=== PATIENT | female | born 1930 | race Caucasian/White ===

== ENCOUNTER 2017-04-08 10:35 | Observation (INO) | payer OTHER, BC ==
[~2017-04-08] VITALS: Ht 160 cm; Wt 87.1 kg
[~2017-04-08 10:35] MED LIST: APRESOLINE50 MG PO; ASCORBIC ACID500 M3 PO; ASPIR 8181 M1 PO; Apresoline PO; Augmentin PO; BENICAR20 MG PO; BENICAR40 MG PO; BUMETANIDE2 MG PO; Benicar PO; CARVEDILOL25 MG PO; COLCHICINE0.6 M1 PO; COMBIVENT RESPIM4 GM IH; COMPAZINE10 MG PO; COREG6.25 M1 PO; CRESTOR20 MG PO; Coreg PO; Cozaar PO; DILAUDID2 MG PO; DIPHENOXYLATE-1 EAC1 PO; DUONEB 2.5-0.5 M3 ML IH; Dilaudid PO; DuoNeb IH; FERROUS SULFAT325 MG PO; FLOMAX0.4 MG PO; FOLIC ACID1 MG PO; Feosol PO; Flagyl PO; HYDROCODON-ACE1 EAC7 PO; INDOCIN50 MG PO; IRON160 M1 PO; LASIX10 MG PO; LEVOTHROID88 MCG PO; LEVOTHYROXINE88 MCG PO; LEXAPRO10 MG PO; LOPRESSOR50 MG G-TUBE; LORTAB 5-325 M1 EACH PO; LOSARTAN POTAS100 MG PO; Levaquin PO; Levothroid,Synthroid PO; Lexapro PO; METOPROLOL TART50 MG PO; MIRAPEX PO; MIRAPEX1 MG PO; NAPROXEN SODIU275 MG PO; NEXIUM40 MG PO; NUVIGIL150 MG PO; OMEPRAZOLE40 M1 PO; PREDNISONE10 M1 PO; PREDNISONE20 MG PO; PRILOSEC40 MG PO; RANITIDINE HCL; RANITIDINE HCL150 MG PO; RED YEAST RICE600 M1 PO; SERTRALINE HCL100 MG PO; SYMBICORT60 INHALAT IH; SYNTHROID88 MCG PO; Symbicort 160-4.5 mc IH; TOPROL XL50 MG PO; TORSEMIDE20 MG PO; TYLENOL REGULA325 MG PO; Toprol XL PO; VITAMIN C500 M1 PO; VITAMIN D31000 UNI2 PO; VYTORIN; VYTORIN 10-401 EACH PO; VYTORIN 10/41 TABLET PO; Vicodin,Norco 5/325 PO; Vytorin 10/40 PO; XIFAXAN550 MG PO; ZESTRIL,PRINIVIL5 MG PO; Zantac,Taladine PO; Zoloft PO; predniSONE PO
[2017-04-08 12:03] LABS: HEMATOCRIT 38.4 % (36.0-46.0); MCH 33.2 PG (29.0-34.0); MCHC 33.3 G/DL (30.0-36.0); MCV 99.7 FL (83-99); MEAN PLAT.VOLUME 9.9 uM^3 (9.5-12.4); PLATELET COUNT 149 K/uL (156-360); RBC DIS.WIDTH-CV 14.7 % (11.8-14.6); RBC DIS.WIDTH-SD 53.9 % (39-53); RED BLOOD COUNT 3.85 M/uL (3.80-5.20)
[2017-04-08 12:08] LABS: WHITE BLOOD COUNT 7.9 K/uL (4.1-10.2)
[2017-04-08 12:29] LABS: TROP-I INTERPRETATION NEGATIVE; TROPONIN-I < 0.01 ng/mL (0.0-0.30)
[2017-04-08 12:37] LABS: CHLORIDE 104 mEq/L (99-109); POTASSIUM 3.5 mEq/L (3.7-5.4)
[2017-04-08 12:38] LABS: SODIUM 142 mEq/L (136-147)
[2017-04-08 12:40] LABS: GLUCOSE 91 mg/dL (70-99)
[2017-04-08 12:41] LABS: ANION GAP 14 MEQ/L (2-14); TOTAL BILIRUBIN 0.6 mg/dL (0.0-1.0)
[2017-04-08 12:43] LABS: ALKALINE PHOSPHATASE 63 IU/L (3-129); GFR ESTIMATE (CALCULATED) 50 mL/min/
[2017-04-08 12:44] LABS: UREA NITROGEN (BUN) 36 mg/dL (9-23)
[2017-04-08 12:45] LABS: DIRECT BILIRUBIN 0.2 mg/dL (0.0-0.3)
[2017-04-08] MEDS ORDERED: ALLOPURINOL300 MG PO (15:08)
[2017-04-08] MEDS ORDERED: FUROSEMIDE40 MG PO (15:09)
[2017-04-08] MEDS ORDERED: SERTRALINE HCL50 MG PO (15:09)
[2017-04-08] MEDS ORDERED: POTASSIUM CHLO10 ME4 PO (15:09)
[2017-04-08] MEDS ORDERED: PREDNISONE5 MG PO (15:10)
[2017-04-08 17:16] VITALS: BP 137/62
[2017-04-08 20:08] VITALS: BP 123/83
[2017-04-08 21:38] LABS: TROP-I INTERPRETATION NEGATIVE; TROPONIN-I < 0.01 ng/mL (0.0-0.30)
[2017-04-08 23:53] VITALS: BP 117/61
[2017-04-09 04:03] VITALS: BP 114/55
[2017-04-09 05:21] LABS: CHLORIDE 104 mEq/L (99-109); POTASSIUM 4.3 mEq/L (3.7-5.4); SODIUM 142 mEq/L (136-147)
[2017-04-09 05:22] LABS: TROP-I INTERPRETATION NEGATIVE; TROPONIN-I < 0.01 ng/mL (0.0-0.30)
[2017-04-09 05:23] LABS: GLUCOSE 90 mg/dL (70-99)
[2017-04-09 05:24] LABS: ANION GAP 9 MEQ/L (2-14)
[2017-04-09 05:27] LABS: ALKALINE PHOSPHATASE 52 IU/L (3-129); GFR ESTIMATE (CALCULATED) 50 mL/min/; TOTAL BILIRUBIN 0.4 mg/dL (0.0-1.0)
[2017-04-09 05:28] LABS: UREA NITROGEN (BUN) 29 mg/dL (9-23)
[2017-04-09 06:52] VITALS: BP 129/60
[2017-04-09 12:37] VITALS: BP 138/68
== END 2017-04-09 14:59 | disposition home or self-care (01) ==
LOC: EME 10:35 → EDOF 14:50 → 5WEST 17:13
PROVIDERS: Internal Medicine
DX: R07.89 Other chest pain (principal); M54.9 Dorsalgia, unspecified; R42 Dizziness and giddiness; I10 Essential (primary) hypertension; J44.9 Chronic obstructive pulmonary disease, unspecified; E78.5 Hyperlipidemia, unspecified; K21.9 Gastro-esophageal reflux disease without esophagitis; Z87.891 Personal history of nicotine dependence; E66.9 Obesity, unspecified; Z68.34 Body mass index [BMI] 34.0-34.9, adult; G47.33 Obstructive sleep apnea (adult) (pediatric); E53.8 Deficiency of other specified B group vitamins; F41.9 Anxiety disorder, unspecified; E03.9 Hypothyroidism, unspecified; M10.9 Gout, unspecified; K86.2 Cyst of pancreas; R09.02 Hypoxemia
CPT/HCPCS: 71020; 71275; 80048; 80053; 80076; 83880; 84484; 85027; 93005; 94640; 94640 76; 94799; 99202; 99281; 99284; G0378; J1650; J2270; J7120; J7512

== ENCOUNTER 2017-06-13 08:55 | Emergency (ER) | payer OTHER, BC ==
[~2017-06-13] VITALS: Ht 160 cm; Wt 82.7 kg
[~2017-06-13 08:55] MED LIST changes: +ALLOPURINOL300 MG PO; +FUROSEMIDE40 MG PO; +POTASSIUM CHLO10 ME4 PO; +PREDNISONE5 MG PO; +SERTRALINE HCL50 MG PO
[2017-06-13 09:51] LABS: EOSINOPHIL (%) 1.1 % (0-5); EOSINOPHIL COUNT 0.1 K/uL (0-0.3); HEMATOCRIT 35.8 % (36.0-46.0); IMMATURE GRANULOCYTE (%) 0.7 % (0.0-0.7); IMMATURE GRANULOCYTE COUNT 0.1 K/uL; INSTRUMENT ABS NEUTROPHIL CT 6.7 K/uL; LYMPHOCYTE COUNT 1.6 K/uL (1.0-2.8); MCH 33.2 PG (29.0-34.0); MCV 100.8 FL (83-99); MEAN PLAT.VOLUME 9.4 uM^3 (9.5-12.4); MONOCYTE (%) 7.4 % (3-12); MONOCYTE COUNT 0.7 K/uL (0-0.8); NEUTROPHIL (%) 73.3 % (45-76); NEUTROPHIL COUNT 6.7 K/uL (1.8-6.4); PLATELET COUNT 168 K/uL (156-360); RBC DIS.WIDTH-CV 14.6 % (11.8-14.6); RBC DIS.WIDTH-SD 54.4 % (39-53); RED BLOOD COUNT 3.55 M/uL (3.80-5.20); WHITE BLOOD COUNT 9.2 K/uL (4.1-10.2)
[2017-06-13 10:00] LABS: PROTHROMBIN TIME 10.4 SEC (10.2-12.9)
[2017-06-13 10:03] LABS: PTT 27.3 SEC (25-37)
[2017-06-13 10:27] LABS: ANION GAP 12 MEQ/L (2-14); CHLORIDE 102 MEQ/L (99-109); POTASSIUM 4.1 MEQ/L (3.7-5.4); SAMPLE HEMOLYSIS CHECK 1; SAMPLE ICTERIC CHECK 0; SAMPLE LIPEMIA CHECK 1; SODIUM 142 MEQ/L (136-147); TOTAL BILIRUBIN 0.5 MG/DL (0.0-1.0)
[2017-06-13 10:33] LABS: ALKALINE PHOSPHATASE 63 IU/L (3-129); GFR ESTIMATE (CALCULATED) 41 mL/min/; GLUCOSE 93 mg/dL (70-99); LIPASE 30 U/L (1.0-51.0); UREA NITROGEN (BUN) 50 mg/dL (9-23)
[2017-06-13 11:22] LABS: TROP-I INTERPRETATION NEGATIVE; TROPONIN-I 0.01 ng/mL (0.0-0.30)
[2017-06-13] MEDS ORDERED: ULTRAM50 MG PO (12:52)
[2017-06-13 13:10] VITALS: BP 109/65
== END 2017-06-13 13:21 | disposition home or self-care (01) ==
LOC: EME 08:55
PROVIDERS: Emergency Medicine
DX: K86.2 Cyst of pancreas (principal); R10.13 Epigastric pain; M54.9 Dorsalgia, unspecified; K21.9 Gastro-esophageal reflux disease without esophagitis; I10 Essential (primary) hypertension; Z87.442 Personal history of urinary calculi; Z87.891 Personal history of nicotine dependence
CPT/HCPCS: 71010; 74177; 80053; 83690; 84484; 85025; 85610; 85730; 93005; 99281; 99285; J7030

== ENCOUNTER 2017-07-21 14:41 | Inpatient (IN) | payer OTHER, BC ==
[~2017-07-21] VITALS: Ht 160 cm; Wt 82.6 kg
[~2017-07-21 14:41] MED LIST changes: +MICRO-K10 ME2 PO; -POTASSIUM CHLO10 ME4 PO; +PREDNISONE10 MG PO; -PREDNISONE5 MG PO; +ULTRAM50 MG PO
[2017-07-21 17:18] LABS: HEMATOCRIT 36.9 % (36.0-46.0); MCH 33.5 PG (29.0-34.0); MCHC 33.1 G/DL (30.0-36.0); MCV 101.4 FL (83-99); MEAN PLAT.VOLUME 9.9 uM^3 (9.5-12.4); PLATELET COUNT 155 K/uL (156-360); RBC DIS.WIDTH-CV 14.6 % (11.8-14.6); RBC DIS.WIDTH-SD 54.6 % (39-53); RED BLOOD COUNT 3.64 M/uL (3.80-5.20); WHITE BLOOD COUNT 18.3 K/uL (4.1-10.2)
[2017-07-21 17:25] LABS: PROTHROMBIN TIME 10.6 SEC (10.2-12.9)
[2017-07-21 17:28] LABS: PTT 26.2 SEC (25-37)
[2017-07-21 17:29] LABS: CHLORIDE 107 mEq/L (99-109); POTASSIUM 4.1 mEq/L (3.7-5.4); SODIUM 143 mEq/L (136-147)
[2017-07-21 17:31] LABS: GLUCOSE 122 mg/dL (70-99)
[2017-07-21 17:32] LABS: ANION GAP 12 MEQ/L (2-14)
[2017-07-21 17:33] LABS: TOTAL BILIRUBIN 0.4 mg/dL (0.0-1.0)
[2017-07-21 17:35] LABS: ALKALINE PHOSPHATASE 66 IU/L (3-129); GFR ESTIMATE (CALCULATED) 38 mL/min/
[2017-07-21 17:36] LABS: UREA NITROGEN (BUN) 32 mg/dL (9-23)
[2017-07-21] MEDS ORDERED: PREDNISONE10 MG PO (18:37)
[2017-07-21] MEDS ORDERED: METOLAZONE2.5 MG PO (18:38)
[2017-07-21] MEDS ORDERED: CYANOCOBALAM1000 MCG PO (18:38)
[2017-07-21] MEDS ORDERED: NAPROXEN SODIU275 MG PO (18:38)
[2017-07-21 20:30] VITALS: BP 121/59
[2017-07-22] VITALS (7 sets, daily range): BP systolic 105–135; BP diastolic 51–77
[2017-07-22 06:23] LABS: EOSINOPHIL (%) 0.8 % (0-5); EOSINOPHIL COUNT 0.1 K/uL (0-0.3); HEMATOCRIT 32.2 % (36.0-46.0); IMMATURE GRANULOCYTE (%) 0.6 % (0.0-0.7); IMMATURE GRANULOCYTE COUNT 0.1 K/uL; INSTRUMENT ABS NEUTROPHIL CT 8.7 K/uL; LYMPHOCYTE COUNT 1.2 K/uL (1.0-2.8); MCH 34.5 PG (29.0-34.0); MCHC 32.9 G/DL (30.0-36.0); MCV 104.9 FL (83-99); MEAN PLAT.VOLUME 9.7 uM^3 (9.5-12.4); MONOCYTE (%) 4.5 % (3-12); MONOCYTE COUNT 0.5 K/uL (0-0.8); NEUTROPHIL (%) 82.7 % (45-76); NEUTROPHIL COUNT 8.7 K/uL (1.8-6.4); PLATELET COUNT 129 K/uL (156-360); RBC DIS.WIDTH-SD 57.1 % (39-53); RED BLOOD COUNT 3.07 M/uL (3.80-5.20); WHITE BLOOD COUNT 10.5 K/uL (4.1-10.2)
[2017-07-22 06:55] LABS: ANION GAP 7 MEQ/L (2-14); CHLORIDE 109 MEQ/L (99-109); GFR ESTIMATE (CALCULATED) 41 mL/min/; GLUCOSE 92 mg/dL (70-99); POTASSIUM 4.2 MEQ/L (3.7-5.4); SAMPLE HEMOLYSIS CHECK 0; SAMPLE ICTERIC CHECK 0; SAMPLE LIPEMIA CHECK 0; SODIUM 143 MEQ/L (136-147); UREA NITROGEN (BUN) 27 mg/dL (9-23)
[2017-07-23] VITALS (7 sets, daily range): BP systolic 111–139; BP diastolic 56–78
[2017-07-24 04:00] VITALS: BP 125/78
[2017-07-24 07:20] VITALS: BP 162/74
[2017-07-24 11:44] VITALS: BP 171/74
[2017-07-24 16:20] VITALS: BP 122/58
[2017-07-24 19:28] VITALS: BP 145/65
[2017-07-24 23:24] VITALS: BP 140/63
[2017-07-25 07:50] VITALS: BP 162/70
[2017-07-25] MEDS ORDERED: AUGMENTIN500 MG PO (15:11)
[2017-07-25] MEDS ORDERED: OXYCODONE HCL5 MG PO (15:12)
== END 2017-07-25 15:52 | disposition home or self-care (01) | DRG 603 ==
LOC: EME 14:41 → EDOF 18:30 → ENRESERV 18:39 → 2EAST 20:10
PROVIDERS: Emergency Medicine; Internal Medicine
DX: L03.115 Cellulitis of right lower limb (principal); B95.8 Unspecified staphylococcus as the cause of diseases classified elsewhere; I11.0 Hypertensive heart disease with heart failure; I50.9 Heart failure, unspecified; G47.30 Sleep apnea, unspecified; G89.4 Chronic pain syndrome; J44.9 Chronic obstructive pulmonary disease, unspecified; I83.90 Asymptomatic varicose veins of unspecified lower extremity; I87.2 Venous insufficiency (chronic) (peripheral); E03.9 Hypothyroidism, unspecified; G25.81 Restless legs syndrome; G47.00 Insomnia, unspecified; I25.10 Atherosclerotic heart disease of native coronary artery without angina pectoris; K21.9 Gastro-esophageal reflux disease without esophagitis; M10.9 Gout, unspecified; F41.9 Anxiety disorder, unspecified; M19.90 Unspecified osteoarthritis, unspecified site; Z68.32 Body mass index [BMI] 32.0-32.9, adult; E66.9 Obesity, unspecified; Z82.49 Family history of ischemic heart disease and other diseases of the circulatory system; Z83.3 Family history of diabetes mellitus; Z87.442 Personal history of urinary calculi; Z87.891 Personal history of nicotine dependence
CPT/HCPCS: 80048; 80053; 83605; 85025; 85027; 85610; 85730; 86341 90; 87040; 87077; 87186; 87801; 93971; 94640; 94640 76; 94760; 94799; 99281; 99285; J0295; J0690; J0696; J1644; J7030; J7050; J7512; S0028; S0039

== ENCOUNTER 2017-09-18 07:31 | Inpatient (IN) | payer OTHER, BC ==
[~2017-09-18] VITALS: Ht 167.6 cm; Wt 81.4 kg
[~2017-09-18 07:31] MED LIST changes: +AUGMENTIN500 MG PO; +CYANOCOBALAM1000 MCG PO; +METOLAZONE2.5 MG PO; +OXYCODONE HCL5 MG PO
[2017-09-18 08:42] LABS: EOSINOPHIL (%) 0.2 % (0-5); HEMATOCRIT 33.6 % (36.0-46.0); IMMATURE GRANULOCYTE (%) 0.3 % (0.0-0.7); LYMPHOCYTE COUNT 1.1 K/uL (1.0-2.8); MCH 33.3 PG (29.0-34.0); MCHC 33.3 G/DL (30.0-36.0); MEAN PLAT.VOLUME 9.1 uM^3 (9.5-12.4); MONOCYTE (%) 7.4 % (3-12); MONOCYTE COUNT 0.9 K/uL (0-0.8); NEUTROPHIL (%) 82.7 % (45-76); PLATELET COUNT 187 K/uL (156-360); RBC DIS.WIDTH-CV 14.6 % (11.8-14.6); RBC DIS.WIDTH-SD 53.9 % (39-53); RED BLOOD COUNT 3.36 M/uL (3.80-5.20); WHITE BLOOD COUNT 12.2 K/uL (4.1-10.2)
[2017-09-18 09:06] LABS: TROP-I INTERPRETATION NEGATIVE; TROPONIN-I 0.01 ng/mL (0.0-0.30)
[2017-09-18 09:13] LABS: ANION GAP 11 MEQ/L (2-14); CHLORIDE 100 MEQ/L (99-109); CREATINE KINASE 93 IU/L (1-294); GFR ESTIMATE (CALCULATED) 32 mL/min/; GLUCOSE 128 mg/dL (70-99); POTASSIUM 3.9 MEQ/L (3.7-5.4); SAMPLE HEMOLYSIS CHECK 0; SAMPLE ICTERIC CHECK 0; SAMPLE LIPEMIA CHECK 0; SODIUM 138 MEQ/L (136-147); TOTAL CK 93 IU/L (1-294); UREA NITROGEN (BUN) 33 mg/dL (9-23)
[2017-09-18] MEDS ORDERED: SERTRALINE HCL50 MG PO (10:41)
[2017-09-18] MEDS ORDERED: VITAMIN B-1100 MG PO (10:42)
[2017-09-18 11:58] VITALS: BP 110/67
[2017-09-18 16:04] VITALS: BP 136/62
[2017-09-18 16:36] LABS: TROP-I INTERPRETATION NEGATIVE; TROPONIN-I < 0.01 ng/mL (0.0-0.30)
[2017-09-18 19:45] VITALS: BP 175/74
[2017-09-19 00:15] VITALS: BP 139/65
[2017-09-19 01:12] LABS: TROP-I INTERPRETATION NEGATIVE; TROPONIN-I < 0.01 ng/mL (0.0-0.30)
[2017-09-19 04:19] VITALS: BP 114/57
[2017-09-19 05:46] LABS: TROP-I INTERPRETATION NEGATIVE; TROPONIN-I < 0.01 ng/mL (0.0-0.30)
[2017-09-19 08:46] VITALS: BP 103/52
[2017-09-19 11:26] VITALS: BP 119/58
[2017-09-19 15:23] VITALS: BP 114/58
[2017-09-19 19:55] VITALS: BP 107/51
[2017-09-20] VITALS (7 sets, daily range): BP systolic 82–99; BP diastolic 47–58
[2017-09-21 04:00] VITALS: BP 98/64
[2017-09-21 09:11] VITALS: BP 115/54
[2017-09-21 10:34] LABS: BASE EXCESS -5.6 mEq/L (-3 to +3); BICARBONATE 21.5 mEq/L (22-26); CARBOXY HGB 2.2 % (0-5); METHEMOGLOBIN 1.6 % (0-1.5); PCO2 49 mm Hg (35-45); PO2 85 mm Hg (80-100)
[2017-09-21 10:35] LABS: DEVICE NC; O2 FLOW 2 L/MIN; SITE RR; TOTAL RESP RATE 15 resp/min
[2017-09-21 10:36] LABS: pH 7.25 (7.35-7.45)
[2017-09-21 10:58] LABS: HEMATOCRIT 28.5 % (36.0-46.0); MCH 33.8 PG (29.0-34.0); MCHC 33.7 G/DL (30.0-36.0); MCV 100.4 FL (83-99); MEAN PLAT.VOLUME 9.5 uM^3 (9.5-12.4); PLATELET COUNT 199 K/uL (156-360); RBC DIS.WIDTH-CV 14.8 % (11.8-14.6); RED BLOOD COUNT 2.84 M/uL (3.80-5.20); WHITE BLOOD COUNT 9.6 K/uL (4.1-10.2)
[2017-09-21 11:30] LABS: ANION GAP 15 MEQ/L (2-14); CHLORIDE 95 MEQ/L (99-109); GLUCOSE 75 mg/dL (70-99); SAMPLE HEMOLYSIS CHECK 0; SAMPLE ICTERIC CHECK 0; SAMPLE LIPEMIA CHECK 0
[2017-09-21 11:31] LABS: GFR ESTIMATE (CALCULATED) 11 mL/min/; POTASSIUM 5.4 MEQ/L (3.7-5.4); SODIUM 130 MEQ/L (136-147); UREA NITROGEN (BUN) 62 mg/dL (9-23)
[2017-09-21 12:36] VITALS: BP 83/39
[2017-09-21 14:15] LABS: BASE EXCESS -4.8 mEq/L (-3 to +3); BICARBONATE 20.5 mEq/L (22-26); CARBOXY HGB 2.2 % (0-5); METHEMOGLOBIN 1.6 % (0-1.5); PCO2 38 mm Hg (35-45); PO2 88 mm Hg (80-100); pH 7.34 (7.35-7.45)
[2017-09-21 14:16] LABS: COMMENTS - BLOOD GASES C+A+; DEVICE NC; O2 FLOW 2 L/MIN; SITE RR; TOTAL RESP RATE 20 resp/min
[2017-09-21 14:36] VITALS: BP 102/59
[2017-09-21 15:53] VITALS: BP 109/59
[2017-09-21 16:55] LABS: COMMENTS - BLOOD GASES C+A+
[2017-09-21 19:00] VITALS: BP 112/59
[2017-09-22 00:04] LABS: BASE EXCESS -4.5 mEq/L (-3 to +3); BICARBONATE 21.1 mEq/L (22-26); CARBOXY HGB 1.7 % (0-5); METHEMOGLOBIN 1.8 % (0-1.5); PCO2 40 mm Hg (35-45); PO2 92 mm Hg (80-100); pH 7.33 (7.35-7.45)
[2017-09-22 00:05] LABS: COMMENTS - BLOOD GASES C+A+; DEVICE NC; O2 FLOW 2 L/MIN; SITE LR; TOTAL RESP RATE 16 resp/min
[2017-09-22 00:26] LABS: ADD MIUA? YES; BILIRUBIN NEGATIVE; BLOOD SMALL; COLOR YELLOW ((YELLOW)); GLUCOSE (STRIP) NEGATIVE; KETONES NEGATIVE; LEUKOCYTES TRACE; NITRITE NEGATIVE; PROTEIN (STRIP) NEGATIVE; SPECIFIC GRAVITY 1.014 (1.000-1.030); UROBILINOGEN 0.2 MG/DL (0.2-1.0)
[2017-09-22 00:30] LABS: BACTERIA RARE /HPF; EPITHELIAL CELLS RARE /HPF; MUCUS 2+ /LPF; RED BLOOD CELLS 0-5 /HPF (0-5); WHITE BLOOD CELLS 0-5 /HPF (0-5)
[2017-09-22 00:34] VITALS: BP 106/53
[2017-09-22 05:07] LABS: HEMATOCRIT 29.2 % (36.0-46.0); MCH 33.6 PG (29.0-34.0); MCHC 33.9 G/DL (30.0-36.0); MEAN PLAT.VOLUME 9.3 uM^3 (9.5-12.4); PLATELET COUNT 228 K/uL (156-360); RBC DIS.WIDTH-CV 14.4 % (11.8-14.6); RBC DIS.WIDTH-SD 53.1 % (39-53); RED BLOOD COUNT 2.95 M/uL (3.80-5.20); WHITE BLOOD COUNT 8.8 K/uL (4.1-10.2)
[2017-09-22 06:00] LABS: ANION GAP 14 MEQ/L (2-14); CHLORIDE 97 MEQ/L (99-109); GFR ESTIMATE (CALCULATED) 15 mL/min/; POTASSIUM 4.9 MEQ/L (3.7-5.4); SAMPLE HEMOLYSIS CHECK 0; SAMPLE ICTERIC CHECK 0; SAMPLE LIPEMIA CHECK 0; SODIUM 132 MEQ/L (136-147); UREA NITROGEN (BUN) 67 mg/dL (9-23)
[2017-09-22 06:04] LABS: GLUCOSE 123 mg/dL (70-99)
[2017-09-22 08:13] VITALS: BP 135/61
[2017-09-22 10:47] VITALS: BP 153/70
[2017-09-22 15:45] VITALS: BP 117/58
[2017-09-22 19:45] VITALS: BP 148/63
[2017-09-22 23:48] VITALS: BP 146/70
[2017-09-23 03:37] VITALS: BP 117/58
[2017-09-23 07:40] VITALS: BP 152/65
[2017-09-23 09:32] LABS: ANION GAP 16 MEQ/L (2-14); CHLORIDE 105 MEQ/L (99-109); POTASSIUM 4.3 MEQ/L (3.7-5.4); SAMPLE HEMOLYSIS CHECK 0; SAMPLE ICTERIC CHECK 0; SAMPLE LIPEMIA CHECK 0; UREA NITROGEN (BUN) 71 mg/dL (9-23)
[2017-09-23 09:33] LABS: GFR ESTIMATE (CALCULATED) 27 mL/min/; GLUCOSE 79 mg/dL (70-99); SODIUM 142 MEQ/L (136-147)
[2017-09-23 10:45] VITALS: BP 127/56
[2017-09-23 19:46] VITALS: BP 161/80
[2017-09-23 23:50] VITALS: BP 150/71
[2017-09-24 04:33] VITALS: BP 137/69
[2017-09-24 04:49] LABS: HEMATOCRIT 29.6 % (36.0-46.0); MCH 32.9 PG (29.0-34.0); MCHC 33.1 G/DL (30.0-36.0); MCV 99.3 FL (83-99); RBC DIS.WIDTH-SD 51.3 % (39-53); RED BLOOD COUNT 2.98 M/uL (3.80-5.20)
[2017-09-24 04:50] LABS: EOSINOPHIL (%) 0.2 % (0-5); IMMATURE GRANULOCYTE (%) 0.8 % (0.0-0.7); IMMATURE GRANULOCYTE COUNT 0.1 K/uL; INSTRUMENT ABS NEUTROPHIL CT 5.2 K/uL; LYMPHOCYTE COUNT 0.4 K/uL (1.0-2.8); MEAN PLAT.VOLUME 9.4 uM^3 (9.5-12.4); MONOCYTE (%) 5.2 % (3-12); MONOCYTE COUNT 0.3 K/uL (0-0.8); NEUTROPHIL (%) 86.2 % (45-76); NEUTROPHIL COUNT 5.2 K/uL (1.8-6.4); PLATELET COUNT 248 K/uL (156-360)
[2017-09-24 05:06] LABS: CHLORIDE 108 mEq/L (99-109); POTASSIUM 4.3 mEq/L (3.7-5.4); SODIUM 140 mEq/L (136-147)
[2017-09-24 05:07] LABS: GLUCOSE 94 mg/dL (70-99)
[2017-09-24 05:09] LABS: ANION GAP 10 MEQ/L (2-14)
[2017-09-24 05:11] LABS: GFR ESTIMATE (CALCULATED) 38 mL/min/
[2017-09-24 05:12] LABS: UREA NITROGEN (BUN) 69 mg/dL (9-23)
[2017-09-24 07:22] VITALS: BP 138/65
[2017-09-24 11:57] VITALS: BP 169/72
[2017-09-24 15:50] VITALS: BP 135/78
[2017-09-24 19:15] VITALS: BP 146/62
[2017-09-25] VITALS: BP 165/79
[2017-09-25 04:00] VITALS: BP 160/78
[2017-09-25 05:40] LABS: HEMATOCRIT 30.3 % (36.0-46.0); MCH 32.1 PG (29.0-34.0); MCV 100.3 FL (83-99); MEAN PLAT.VOLUME 9.5 uM^3 (9.5-12.4); PLATELET COUNT 248 K/uL (156-360); RBC DIS.WIDTH-CV 14.1 % (11.8-14.6); RBC DIS.WIDTH-SD 52.1 % (39-53); RED BLOOD COUNT 3.02 M/uL (3.80-5.20); WHITE BLOOD COUNT 5.6 K/uL (4.1-10.2)
[2017-09-25 06:20] LABS: ANION GAP 10 MEQ/L (2-14); CHLORIDE 110 MEQ/L (99-109); GFR ESTIMATE (CALCULATED) 38 mL/min/; GLUCOSE 99 mg/dL (70-99); POTASSIUM 4.3 MEQ/L (3.7-5.4); SAMPLE HEMOLYSIS CHECK 0; SAMPLE ICTERIC CHECK 0; SAMPLE LIPEMIA CHECK 0; SODIUM 144 MEQ/L (136-147); UREA NITROGEN (BUN) 55 mg/dL (9-23); URIC ACID 12.5 mg/dL (3.1-9.2)
[2017-09-25 07:55] VITALS: BP 156/100
[2017-09-25 12:00] VITALS: BP 151/68
[2017-09-25 16:00] VITALS: BP 185/80
[2017-09-25 19:38] VITALS: BP 156/78
[2017-09-26 00:59] VITALS: BP 158/68
[2017-09-26 03:13] VITALS: BP 148/69
[2017-09-26 08:10] VITALS: BP 186/85
[2017-09-26 11:57] VITALS: BP 168/72
[2017-09-26 16:13] VITALS: BP 177/73
[2017-09-26] MEDS ORDERED: OXYCODONE HCL5 MG PO (18:10)
== END 2017-09-26 19:53 | DRG 602 ==
LOC: EME 07:31 → EDOF 10:25 → 5WEST 10:25 → EDOF 10:25 → ENRESERV 10:44 → 5WEST 11:38
PROVIDERS: Emergency Medicine; Family Medicine; Internal Medicine Nephrology
DX: L03.115 Cellulitis of right lower limb (principal); L03.116 Cellulitis of left lower limb; N17.9 Acute kidney failure, unspecified; T46.5X5A Adverse effect of other antihypertensive drugs, initial encounter; G93.49 Other encephalopathy; M10.9 Gout, unspecified; M1A.9XX0 Chronic gout, unspecified, without tophus (tophi); E86.0 Dehydration; E87.2 Acidosis; E87.1 Hypo-osmolality and hyponatremia; G89.4 Chronic pain syndrome; G62.9 Polyneuropathy, unspecified; M48.061 Spinal stenosis, lumbar region without neurogenic claudication; I13.0 Hypertensive heart and chronic kidney disease with heart failure and stage 1 through stage 4 chronic kidney disease, or unspecified chronic kidney disease; I50.9 Heart failure, unspecified; N18.3 Chronic kidney disease, stage 3 (moderate); I25.10 Atherosclerotic heart disease of native coronary artery without angina pectoris; K52.9 Noninfective gastroenteritis and colitis, unspecified; R07.89 Other chest pain; J43.9 Emphysema, unspecified; E03.9 Hypothyroidism, unspecified; K21.9 Gastro-esophageal reflux disease without esophagitis; G47.00 Insomnia, unspecified; G47.30 Sleep apnea, unspecified; E78.5 Hyperlipidemia, unspecified; F41.9 Anxiety disorder, unspecified; M19.90 Unspecified osteoarthritis, unspecified site; G25.81 Restless legs syndrome; E66.9 Obesity, unspecified; Z68.31 Body mass index [BMI] 31.0-31.9, adult; Q61.3 Polycystic kidney, unspecified; Z83.3 Family history of diabetes mellitus; Z87.442 Personal history of urinary calculi; Z87.891 Personal history of nicotine dependence
CPT/HCPCS: 36600; 70450; 71010; 71020; 72158; 76770; 80048; 81003; 82550; 82553; 82803; 82948; 83605; 84484; 84550; 85025; 85027; 85651; 87040; 87086; 87205; 93005; 93925; 93970; 94640; 94640 76; 94660; 94760; 94799; 97530 GP; 99202; 99281; 99285; G0378; J0690; J0696; J1644; J2270; J2920; J2930; J7030; J7050

== ENCOUNTER 2017-12-01 12:16 | Inpatient (IN) | payer OTHER, BC ==
[~2017-12-01] VITALS: Ht 160 cm; Wt 76.9 kg
[~2017-12-01 12:16] MED LIST changes: +COZAAR50 MG PO; -LOSARTAN POTAS100 MG PO; +VITAMIN B-1100 MG PO
[2017-12-01 12:53] LABS: HEMATOCRIT 26.3 % (36.0-46.0); HEMOGLOBIN 8.6 G/DL (11.9-15.5); MCH 32.1 PG (29.0-34.0); MCHC 32.7 G/DL (30.0-36.0); MCV 98.1 FL (83-99); NRBC (%) 0.4 /100 WBC (0-0); PLATELET COUNT 127 K/uL (156-360); RBC DIS.WIDTH-CV 18.8 % (11.8-14.6); RBC DIS.WIDTH-SD 66.4 % (39-53); RED BLOOD COUNT 2.68 M/uL (3.80-5.20); WHITE BLOOD COUNT 6.8 K/uL (4.1-10.2)
[2017-12-01 13:04] LABS: CHLORIDE 104 mEq/L (99-109); POTASSIUM 4.1 mEq/L (3.7-5.4); SODIUM 140 mEq/L (136-147)
[2017-12-01 13:10] LABS: CREATININE 1.3 mg/dL (0.6-1.3); GFR ESTIMATE (CALCULATED) 41 mL/min/
[2017-12-01 13:11] LABS: TROP-I INTERPRETATION NEGATIVE; TROPONIN-I 0.01 ng/mL (0.0-0.30)
[2017-12-01 13:17] LABS: GLUCOSE 166 mg/dL (70-99)
[2017-12-01 13:22] LABS: UREA NITROGEN (BUN) 30 mg/dL (9-23)
[2017-12-01 13:49] LABS: APPEARANCE CLEAR ((CLEAR)); BILIRUBIN NEGATIVE; BLOOD MODERATE; COLOR YELLOW ((YELLOW)); GLUCOSE (STRIP) NEGATIVE; KETONES NEGATIVE; LEUKOCYTES TRACE; NITRITE NEGATIVE; PROTEIN (STRIP) NEGATIVE; SPECIFIC GRAVITY 1.009 (1.000-1.030); UROBILINOGEN 0.2 MG/DL (0.2-1.0)
[2017-12-01 14:05] LABS: BACTERIA RARE /HPF; EPITHELIAL CELLS RARE /HPF; MUCUS TRACE /LPF; RED BLOOD CELLS 0-5 /HPF (0-5); UCUL ADDED? YES
[2017-12-01 15:12] LABS: BASE EXCESS 2.6 mEq/L (-3 to +3); BICARBONATE 27.2 mEq/L (22-26); CARBOXY HGB 2.1 % (0-5); COMMENTS - BLOOD GASES A+C+; METHEMOGLOBIN 1.2 % (0-1.5); PCO2 41 mm Hg (35-45); PO2 93 mm Hg (80-100); SITE RR; pH 7.43 (7.35-7.45)
[2017-12-01 15:13] LABS: DEVICE NC; O2 FLOW 2 L/MIN
[2017-12-01] MEDS ORDERED: PREDNISONE10 MG PO (16:14)
[2017-12-01] MEDS ORDERED: ALLOPURINOL300 MG PO (16:15)
[2017-12-01] MEDS ORDERED: NITROSTAT0.4 MG SL (16:15)
[2017-12-01] MEDS ORDERED: SILVER SULFADIA50 GM TP (16:15)
[2017-12-01] MEDS ORDERED: CRESTOR10 MG PO (16:15)
[2017-12-01] MEDS ORDERED: DUONEB 2.5-0.5 M3 ML AEROSOL (16:15)
[2017-12-01] MEDS ORDERED: SYMBICORT60 INHALAT IH (16:15)
[2017-12-01 19:53] LABS: HEMATOCRIT 25.8 % (36.0-46.0); HEMOGLOBIN 8.3 G/DL (11.9-15.5); MCH 32.4 PG (29.0-34.0); MCHC 32.2 G/DL (30.0-36.0); MCV 100.8 FL (83-99); NRBC (%) 0.3 /100 WBC (0-0); PLATELET COUNT 138 K/uL (156-360); RBC DIS.WIDTH-CV 18.9 % (11.8-14.6); RBC DIS.WIDTH-SD 67.9 % (39-53); RED BLOOD COUNT 2.56 M/uL (3.80-5.20); WHITE BLOOD COUNT 6.6 K/uL (4.1-10.2)
[2017-12-01 20:02] LABS: BASOPHIL (%) 0.2 % (0-1); EOSINOPHIL (%) 0.2 % (0-5); LYMPHOCYTE (%) 24.5 % (15-42); LYMPHOCYTE COUNT 1.6 K/uL (1.0-2.8); MONOCYTE (%) 3.9 % (3-12); MONOCYTE COUNT 0.3 K/uL (0-0.8); NEUTROPHIL (%) 69.2 % (45-76); NEUTROPHIL COUNT 4.6 K/uL (1.8-6.4)
[2017-12-01 20:24] VITALS: BP 129/62
[2017-12-01 23:55] VITALS: BP 131/61
[2017-12-02 03:44] VITALS: BP 142/69
[2017-12-02 06:58] LABS: INTER. NORMALIZED RATIO 1.2
[2017-12-02 06:58] LABS: HEMATOCRIT 26.7 % (36.0-46.0); HEMOGLOBIN 8.5 G/DL (11.9-15.5); MCHC 31.8 G/DL (30.0-36.0); MCV 100.4 FL (83-99); NRBC (%) 0.7 /100 WBC (0-0); PLATELET COUNT 136 K/uL (156-360); RBC DIS.WIDTH-CV 19.2 % (11.8-14.6); RED BLOOD COUNT 2.66 M/uL (3.80-5.20); WHITE BLOOD COUNT 5.8 K/uL (4.1-10.2)
[2017-12-02 07:18] LABS: ALBUMIN 2.9 G/DL (3.2-4.8); ALKALINE PHOSPHATASE 61 IU/L (3-129); ALT (GPT) 17 IU/L (3-49); AST (GOT) 13 IU/L (2-34); CHLORIDE 106 MEQ/L (99-109); GFR ESTIMATE (CALCULATED) 56 mL/min/; POTASSIUM 3.5 MEQ/L (3.7-5.4); SODIUM 145 MEQ/L (136-147); TOTAL BILIRUBIN 0.5 MG/DL (0.0-1.0); TOTAL PROTEIN 4.8 G/DL (6.4-8.3); UREA NITROGEN (BUN) 21 mg/dL (9-23)
[2017-12-02 07:20] LABS: GLUCOSE 75 mg/dL (70-99)
[2017-12-02 09:00] VITALS: BP 142/65
[2017-12-02 11:30] VITALS: BP 150/68
[2017-12-02 18:24] VITALS: BP 139/60
[2017-12-02 20:45] VITALS: BP 130/60
[2017-12-02 21:20] VITALS: BP 139/66
[2017-12-03 00:03] VITALS: BP 117/56
[2017-12-03 03:55] VITALS: BP 100/47
[2017-12-03 07:59] LABS: BASOPHIL (%) 0.3 % (0-1); EOSINOPHIL (%) 0.8 % (0-5); EOSINOPHIL COUNT 0.1 K/uL (0-0.3); HEMATOCRIT 27.9 % (36.0-46.0); HEMOGLOBIN 9.1 G/DL (11.9-15.5); IMMATURE GRANULOCYTE (%) 2.7 % (0.0-0.7); LYMPHOCYTE (%) 25.2 % (15-42); LYMPHOCYTE COUNT 1.8 K/uL (1.0-2.8); MCH 32.6 PG (29.0-34.0); MCHC 32.6 G/DL (30.0-36.0); MONOCYTE (%) 6.6 % (3-12); MONOCYTE COUNT 0.5 K/uL (0-0.8); NEUTROPHIL (%) 64.4 % (45-76); NEUTROPHIL COUNT 4.7 K/uL (1.8-6.4); PLATELET COUNT 129 K/uL (156-360); RBC DIS.WIDTH-CV 19.7 % (11.8-14.6); RBC DIS.WIDTH-SD 70.5 % (39-53); RED BLOOD COUNT 2.79 M/uL (3.80-5.20); WHITE BLOOD COUNT 7.3 K/uL (4.1-10.2)
[2017-12-03 08:24] VITALS: BP 121/59
[2017-12-03 08:25] LABS: CHLORIDE 102 MEQ/L (99-109); GFR ESTIMATE (CALCULATED) 56 mL/min/; POTASSIUM 3.7 MEQ/L (3.7-5.4); SODIUM 141 MEQ/L (136-147); UREA NITROGEN (BUN) 19 mg/dL (9-23)
[2017-12-03 08:27] LABS: GLUCOSE 118 mg/dL (70-99)
[2017-12-03 12:20] VITALS: BP 102/51
[2017-12-03 16:04] VITALS: BP 141/74
[2017-12-03 20:21] VITALS: BP 116/58
[2017-12-04] VITALS: BP 121/63
[2017-12-04 04:05] VITALS: BP 150/70
[2017-12-04 06:55] LABS: HEMATOCRIT 25.5 % (36.0-46.0); HEMOGLOBIN 8.4 G/DL (11.9-15.5); MCH 32.4 PG (29.0-34.0); MCHC 32.9 G/DL (30.0-36.0); MCV 98.5 FL (83-99); PLATELET COUNT 133 K/uL (156-360); RBC DIS.WIDTH-CV 19.2 % (11.8-14.6); RBC DIS.WIDTH-SD 68.8 % (39-53); RED BLOOD COUNT 2.59 M/uL (3.80-5.20); WHITE BLOOD COUNT 7.2 K/uL (4.1-10.2)
[2017-12-04 08:30] VITALS: BP 143/60
[2017-12-04 11:28] VITALS: BP 134/60
[2017-12-04 15:29] VITALS: BP 126/60
[2017-12-04 20:26] VITALS: BP 113/57
[2017-12-05] VITALS (15 sets, daily range): BP systolic 108–153; BP diastolic 51–70
[2017-12-05 06:46] LABS: HEMATOCRIT 23.6 % (36.0-46.0); HEMOGLOBIN 7.6 G/DL (11.9-15.5); MCH 31.4 PG (29.0-34.0); MCHC 32.2 G/DL (30.0-36.0); MCV 97.5 FL (83-99); PLATELET COUNT 141 K/uL (156-360); RBC DIS.WIDTH-CV 18.8 % (11.8-14.6); RBC DIS.WIDTH-SD 67.4 % (39-53); RED BLOOD COUNT 2.42 M/uL (3.80-5.20); WHITE BLOOD COUNT 6.5 K/uL (4.1-10.2)
[2017-12-05 07:08] LABS: ALBUMIN 2.3 G/DL (3.2-4.8); CHLORIDE 103 MEQ/L (99-109); GFR ESTIMATE (CALCULATED) 56 mL/min/; GLUCOSE 114 mg/dL (70-99); POTASSIUM 3.6 MEQ/L (3.7-5.4); SODIUM 139 MEQ/L (136-147); UREA NITROGEN (BUN) 22 mg/dL (9-23)
[2017-12-06 03:35] VITALS: BP 132/65
[2017-12-06 07:02] LABS: BASOPHIL (%) 0.4 % (0-1); EOSINOPHIL (%) 0.6 % (0-5); HEMATOCRIT 30.4 % (36.0-46.0); IMMATURE GRANULOCYTE (%) 3.2 % (0.0-0.7); LYMPHOCYTE (%) 26.5 % (15-42); LYMPHOCYTE COUNT 1.8 K/uL (1.0-2.8); MCH 31.4 PG (29.0-34.0); MCHC 32.9 G/DL (30.0-36.0); MCV 95.6 FL (83-99); MONOCYTE (%) 6.1 % (3-12); MONOCYTE COUNT 0.4 K/uL (0-0.8); NEUTROPHIL (%) 63.2 % (45-76); NEUTROPHIL COUNT 4.3 K/uL (1.8-6.4); PLATELET COUNT 151 K/uL (156-360); RBC DIS.WIDTH-CV 17.1 % (11.8-14.6); RBC DIS.WIDTH-SD 59.3 % (39-53); WHITE BLOOD COUNT 6.8 K/uL (4.1-10.2)
[2017-12-06 07:03] LABS: RED BLOOD COUNT 3.18 M/uL (3.80-5.20)
[2017-12-06 07:30] VITALS: BP 115/57
[2017-12-06 11:25] VITALS: BP 138/58
[2017-12-06 15:30] VITALS: BP 134/63
[2017-12-06 19:58] VITALS: BP 122/58
[2017-12-07 00:49] VITALS: BP 136/61
[2017-12-07 04:10] VITALS: BP 131/61
[2017-12-07 06:57] VITALS: BP 122/58
[2017-12-07 07:09] LABS: BASOPHIL (%) 0.3 % (0-1); EOSINOPHIL (%) 0.5 % (0-5); HEMATOCRIT 30.4 % (36.0-46.0); HEMOGLOBIN 10.2 G/DL (11.9-15.5); IMMATURE GRANULOCYTE (%) 4.4 % (0.0-0.7); LYMPHOCYTE (%) 23.2 % (15-42); LYMPHOCYTE COUNT 1.7 K/uL (1.0-2.8); MCH 32.4 PG (29.0-34.0); MCHC 33.6 G/DL (30.0-36.0); MCV 96.5 FL (83-99); MONOCYTE (%) 7.4 % (3-12); MONOCYTE COUNT 0.5 K/uL (0-0.8); NEUTROPHIL (%) 64.2 % (45-76); NEUTROPHIL COUNT 4.7 K/uL (1.8-6.4); PLATELET COUNT 143 K/uL (156-360); RBC DIS.WIDTH-CV 17.3 % (11.8-14.6); RBC DIS.WIDTH-SD 60.1 % (39-53); RED BLOOD COUNT 3.15 M/uL (3.80-5.20); WHITE BLOOD COUNT 7.3 K/uL (4.1-10.2)
[2017-12-07 11:10] VITALS: BP 122/59
[2017-12-07 15:05] VITALS: BP 114/58
[2017-12-07 19:40] VITALS: BP 123/60
[2017-12-08] VITALS (7 sets, daily range): BP systolic 122–166; BP diastolic 57–74
[2017-12-08 07:00] LABS: HEMATOCRIT 32.1 % (36.0-46.0); HEMOGLOBIN 10.3 G/DL (11.9-15.5); MCH 31.4 PG (29.0-34.0); MCHC 32.1 G/DL (30.0-36.0); MCV 97.9 FL (83-99); PLATELET COUNT 169 K/uL (156-360); RBC DIS.WIDTH-CV 17.2 % (11.8-14.6); RBC DIS.WIDTH-SD 61.6 % (39-53); RED BLOOD COUNT 3.28 M/uL (3.80-5.20); WHITE BLOOD COUNT 8.8 K/uL (4.1-10.2)
[2017-12-08 07:24] LABS: CHLORIDE 100 MEQ/L (99-109); CREATININE 0.9 MG/DL (0.6-1.3); GFR ESTIMATE (CALCULATED) > 59 mL/min/; GLUCOSE 103 mg/dL (70-99); POTASSIUM 3.9 MEQ/L (3.7-5.4); SODIUM 138 MEQ/L (136-147); UREA NITROGEN (BUN) 18 mg/dL (9-23)
[2017-12-09 03:35] VITALS: BP 123/58
[2017-12-09 07:18] VITALS: BP 129/63
[2017-12-09 15:45] VITALS: BP 119/58
[2017-12-09 19:59] VITALS: BP 127/60
[2017-12-10 00:03] VITALS: BP 132/66
[2017-12-10 01:26] LABS: APPEARANCE CLEAR ((CLEAR)); BILIRUBIN NEGATIVE; BLOOD NEGATIVE; COLOR YELLOW ((YELLOW)); GLUCOSE (STRIP) NEGATIVE; KETONES NEGATIVE; LEUKOCYTES NEGATIVE; NITRITE NEGATIVE; PROTEIN (STRIP) NEGATIVE; SPECIFIC GRAVITY 1.043 (1.000-1.030); UROBILINOGEN 0.2 MG/DL (0.2-1.0)
[2017-12-10 03:59] VITALS: BP 135/66
[2017-12-10 07:04] LABS: HEMATOCRIT 28.6 % (36.0-46.0); HEMOGLOBIN 9.2 G/DL (11.9-15.5); MCH 31.4 PG (29.0-34.0); MCHC 32.2 G/DL (30.0-36.0); MCV 97.6 FL (83-99); PLATELET COUNT 194 K/uL (156-360); RBC DIS.WIDTH-CV 16.7 % (11.8-14.6); RBC DIS.WIDTH-SD 59.7 % (39-53); RED BLOOD COUNT 2.93 M/uL (3.80-5.20); WHITE BLOOD COUNT 8.4 K/uL (4.1-10.2)
[2017-12-10 07:33] LABS: ALBUMIN 2.2 G/DL (3.2-4.8); ALKALINE PHOSPHATASE 88 IU/L (3-129); ALT (GPT) 13 IU/L (3-49); AST (GOT) 14 IU/L (2-34); CHLORIDE 104 MEQ/L (99-109); CREATININE 0.9 MG/DL (0.6-1.3); GFR ESTIMATE (CALCULATED) > 59 mL/min/; POTASSIUM 4.4 MEQ/L (3.7-5.4); SODIUM 138 MEQ/L (136-147); TOTAL BILIRUBIN 0.4 MG/DL (0.0-1.0); TOTAL PROTEIN 4.1 G/DL (6.4-8.3); UREA NITROGEN (BUN) 18 mg/dL (9-23)
[2017-12-10 07:41] LABS: GLUCOSE 199 mg/dL (70-99)
[2017-12-10 08:33] VITALS: BP 128/69
[2017-12-10 11:54] VITALS: BP 120/68
[2017-12-10 17:14] VITALS: BP 130/60
[2017-12-10 20:23] VITALS: BP 113/63
[2017-12-11 00:53] VITALS: BP 110/64
[2017-12-11 03:57] VITALS: BP 121/59
[2017-12-11 06:53] LABS: HEMATOCRIT 26.6 % (36.0-46.0); HEMOGLOBIN 8.6 G/DL (11.9-15.5); MCH 31.7 PG (29.0-34.0); MCHC 32.3 G/DL (30.0-36.0); MCV 98.2 FL (83-99); PLATELET COUNT 207 K/uL (156-360); RBC DIS.WIDTH-SD 56.6 % (39-53); RED BLOOD COUNT 2.71 M/uL (3.80-5.20)
[2017-12-11 07:20] LABS: ALBUMIN 2.1 G/DL (3.2-4.8); ALKALINE PHOSPHATASE 85 IU/L (3-129); ALT (GPT) 17 IU/L (3-49); AST (GOT) 18 IU/L (2-34); CHLORIDE 107 MEQ/L (99-109); CREATININE 0.8 MG/DL (0.6-1.3); GFR ESTIMATE (CALCULATED) > 59 mL/min/; GLUCOSE 233 mg/dL (70-99); SODIUM 140 MEQ/L (136-147); TOTAL BILIRUBIN 0.2 MG/DL (0.0-1.0); TOTAL PROTEIN 4.1 G/DL (6.4-8.3); UREA NITROGEN (BUN) 21 mg/dL (9-23)
[2017-12-11 08:57] VITALS: BP 130/66
[2017-12-11 17:07] VITALS: BP 139/66
[2017-12-11 20:05] VITALS: BP 146/70
[2017-12-11 23:30] VITALS: BP 130/66
[2017-12-12 03:05] VITALS: BP 120/60
[2017-12-12 07:39] VITALS: BP 139/67
[2017-12-12 11:27] VITALS: BP 140/72
[2017-12-12 15:08] VITALS: BP 142/78
[2017-12-12 20:00] VITALS: BP 156/87
[2017-12-12 23:25] VITALS: BP 165/85
[2017-12-13] VITALS (7 sets, daily range): BP systolic 144–176; BP diastolic 72–86
[2017-12-13 15:19] LABS: HEMATOCRIT 28.3 % (36.0-46.0); HEMOGLOBIN 9.2 G/DL (11.9-15.5); MCH 31.8 PG (29.0-34.0); MCHC 32.5 G/DL (30.0-36.0); MCV 97.9 FL (83-99); NRBC (%) 0.2 /100 WBC (0-0); PLATELET COUNT 218 K/uL (156-360); RBC DIS.WIDTH-CV 16.4 % (11.8-14.6); RBC DIS.WIDTH-SD 58.2 % (39-53); RED BLOOD COUNT 2.89 M/uL (3.80-5.20)
[2017-12-13 15:48] LABS: ALBUMIN 2.4 G/DL (3.2-4.8); ALKALINE PHOSPHATASE 86 IU/L (3-129); DIRECT BILIRUBIN 0.1 mg/dL (0.0-0.3); LIPASE 32 U/L (1.0-51.0)
[2017-12-13 15:50] LABS: ALT (GPT) 134 IU/L (3-49); AST (GOT) 99 IU/L (2-34); TOTAL BILIRUBIN 0.3 MG/DL (0.0-1.0); TOTAL PROTEIN 4.8 G/DL (6.4-8.3)
[2017-12-14 06:50] VITALS: BP 164/84
[2017-12-14 06:53] LABS: HEMATOCRIT 30.8 % (36.0-46.0); HEMOGLOBIN 9.9 G/DL (11.9-15.5); MCH 31.3 PG (29.0-34.0); MCHC 32.1 G/DL (30.0-36.0); MCV 97.5 FL (83-99); PLATELET COUNT 266 K/uL (156-360); RBC DIS.WIDTH-CV 16.3 % (11.8-14.6); RBC DIS.WIDTH-SD 58.2 % (39-53); RED BLOOD COUNT 3.16 M/uL (3.80-5.20); WHITE BLOOD COUNT 11.7 K/uL (4.1-10.2)
[2017-12-14] MEDS ORDERED: TYLENOL REGULA325 MG PO (09:08)
[2017-12-14] MEDS ORDERED: ZOLPIDEM TARTRAT5 MG PO (09:09)
== END 2017-12-14 16:25 | DRG 377 ==
LOC: EME 12:16 → 2EAST 16:20 → EDOF 16:20 → ENRESERV 16:36 → 2EAST 19:35
PROVIDERS: Emergency Medicine; Family Medicine; Internal Medicine; Internal Medicine Gastroenterology; Physician Assistant
DX: K25.4 Chronic or unspecified gastric ulcer with hemorrhage (principal); K29.81 Duodenitis with bleeding; D62 Acute posthemorrhagic anemia; D50.0 Iron deficiency anemia secondary to blood loss (chronic); N39.0 Urinary tract infection, site not specified; B96.20 Unspecified Escherichia coli [E. coli] as the cause of diseases classified elsewhere; J44.0 Chronic obstructive pulmonary disease with (acute) lower respiratory infection; J18.9 Pneumonia, unspecified organism; J44.1 Chronic obstructive pulmonary disease with (acute) exacerbation; I82.442 Acute embolism and thrombosis of left tibial vein; K64.4 Residual hemorrhoidal skin tags; K64.8 Other hemorrhoids; D12.3 Benign neoplasm of transverse colon; D12.2 Benign neoplasm of ascending colon; K25.9 Gastric ulcer, unspecified as acute or chronic, without hemorrhage or perforation; K29.70 Gastritis, unspecified, without bleeding; K57.90 Diverticulosis of intestine, part unspecified, without perforation or abscess without bleeding; K29.80 Duodenitis without bleeding; D69.6 Thrombocytopenia, unspecified; K86.2 Cyst of pancreas; I13.0 Hypertensive heart and chronic kidney disease with heart failure and stage 1 through stage 4 chronic kidney disease, or unspecified chronic kidney disease; I50.9 Heart failure, unspecified; N18.3 Chronic kidney disease, stage 3 (moderate); I95.9 Hypotension, unspecified; Q61.3 Polycystic kidney, unspecified; G89.4 Chronic pain syndrome; G47.33 Obstructive sleep apnea (adult) (pediatric); E03.9 Hypothyroidism, unspecified; M10.9 Gout, unspecified; M48.061 Spinal stenosis, lumbar region without neurogenic claudication; I25.10 Atherosclerotic heart disease of native coronary artery without angina pectoris; K21.9 Gastro-esophageal reflux disease without esophagitis; E78.5 Hyperlipidemia, unspecified; M19.90 Unspecified osteoarthritis, unspecified site; E66.9 Obesity, unspecified; F32.9 Major depressive disorder, single episode, unspecified; F41.9 Anxiety disorder, unspecified; H53.8 Other visual disturbances; R00.2 Palpitations; Z68.30 Body mass index [BMI] 30.0-30.9, adult; Z86.19 Personal history of other infectious and parasitic diseases; Z87.442 Personal history of urinary calculi; Z87.891 Personal history of nicotine dependence
CPT/HCPCS: 36600; 70450; 71045; 71046; 71260; 74183; 78582; 80048; 80053; 80069; 80076; 81003; 82803; 83690; 84484; 85025; 85027; 85610; 86301 90; 86304; 86850; 86900; 86901; 86920; 87040; 87077; 87086; 87186; 88305; 88342 TC; 93005; 93971; 94640; 94640 76; 94760; 94799; 99202; 99281; 99284; A9540; A9567; C9113; J0696; J1650; J1940; J2920; J7030; J7512; P9016

== ENCOUNTER → 2018-03-15 | Outpatient (CLI) | payer OTHER, BC ==
[~2018-03-15] VITALS: Ht 160 cm; Wt 73.5 kg
[~2018-03-15] MED LIST changes: +AMBIEN10 MG PO; +CRESTOR10 MG PO; +DUONEB 2.5-0.5 M3 ML AEROSOL; +NITROSTAT0.4 MG SL; +SILVER SULFADIA50 GM TP; +ZOLPIDEM TARTRAT5 MG PO
== END | disposition home or self-care (01) ==
LOC: AMB 07:53
PROC: 0F9G8ZX Drainage of Pancreas, Via Natural or Artificial Opening Endoscopic, Diagnostic (ICD-10-PCS; principal; 2018-03-15)
DX: K86.2 Cyst of pancreas (principal); J44.9 Chronic obstructive pulmonary disease, unspecified; E78.00 Pure hypercholesterolemia, unspecified; E03.9 Hypothyroidism, unspecified; I10 Essential (primary) hypertension; Z88.1 Allergy status to other antibiotic agents
CPT/HCPCS: 88173; J0744; J1100; J1885; J2405